=== PATIENT | female | born 1985 | race Hispanic/Latino ===

== ENCOUNTER → 2024-06-21 08:20 | Outpatient (REF) | payer OTHER, SELFPAY ==
[2024-06-21 09:32] LABS: % Basophils 0.7 % (0-2); % Eosinophils 1.7 % (0-6); % Immature Granulocytes 0.4 % (0-0.5); % Lymphocytes 23.8 % (20.5-51.1); % Monocytes 6.3 % (1.7-9.3); % Neutrophils 67.1 % (42.2-75.2); Absolute Basophils 0.1 10^3/uL (0-0.2); Absolute Eosinophils 0.1 10^3/uL (0-0.7); Absolute Lymphocytes 1.7 10^3/uL (1.2-3.4); Absolute Monocytes 0.5 10^3/uL (0.1-0.6); Absolute Neutrophils 4.9 10^3/uL (1.4-6.5); Hematocrit 36.1 % (37.0-47.0); Mean Corp Hgb Conc. 33.2 g/dL (33.0-37.0); Mean Corpuscular Hgb 29.6 pg (27.0-31.0); Mean Corpuscular Volume 89.1 fL (81.0-99.0); Mean Platelet Volume 11.1 fL (7.4-10.4); Nucleated Red Blood Cells % 0 %; Platelet Count 185 10^3/uL (130-400); Red Blood Cell Count 4.05 10^6/uL (4.20-5.40); Red Cell Dist. Width 12.4 % (11.5-14.5); White Blood Cell Count 7.3 10^3/uL (4.8-10.8)
[2024-06-21 10:02] LABS: ALT (SGPT) 15 U/L (0-35); AST (SGOT) 20 U/L (14-36); Alkaline Phosphatase 60 U/L (38-126); Blood Urea Nitrogen 11 mg/dl (7-17); Calcium 9.2 mg/dl (8.4-10.2); Carbon Dioxide 27 mmol/L (22-30); Chloride 104 mmol/L (98-107); Glucose 85 mg/dl (70-99); HDL Cholesterol 53 mg/dl; LDL Cholesterol, Calculated 56 mg/dl; Potassium 4.4 mmol/L (3.5-5.1); Sodium 137 mmol/L (135-145); Total Bilirubin 0.6 mg/dl (0.2-1.3); Total Cholesterol 122 mg/dl (50-199); Total Protein 6.7 g/dl (6.3-8.2); Triglyceride 69 mg/dl (10-149); Very Low Density Lipoprotein 13 mg/dl (0-30); eGFR > 60.00
[2024-06-21 10:25] LABS: Glycohemoglobin (HgbA1c) 4.9 % (4.0-5.6)
[2024-06-21 10:34] LABS: TSH Reflex To Free T4 1.78 uIU/ml (0.47-4.68)
[2024-06-21 10:50] LABS: Hepatitis C Antibody Negative (Negative)
== END ==
LOC: RAD 08:20
PROVIDERS: ATTENDING PHYSICIAN Nurse Practitioner Family
DX: Z00.00 Encounter for general adult medical examination without abnormal findings (principal); Z11.59 Encounter for screening for other viral diseases; M25.551 Pain in right hip; M54.41 Lumbago with sciatica, right side
CPT/HCPCS: 36415; 72110; 72220; 73502; 80053; 80061; 83036; 84443; 85025; 86803

== ENCOUNTER → 2024-07-26 13:54 | Outpatient (REF) | payer OTHER, SELFPAY ==
[2024-07-26 17:14] LABS: Urine Albumin 1+ (Neg - Trace); Urine Bilirubin Negative (Negative); Urine Character Cloudy (Clear); Urine Color Yellow; Urine Glucose Negative (Negative); Urine Ketone Negative (Negative); Urine Leukocyte Negative (Negative); Urine Nitrite Negative (Negative); Urine Occult Blood 1+ (Negative); Urine Specific Gravity 1.025 (<1.030); Urine Urobilinogen Negative (Neg - 1+)
[2024-07-26 18:00] LABS: Urine Amorphous Seen; Urine Bacteria Many (Negative); Urine White Cell 0-2 /HPF (0-5)
== END ==
LOC: CLAB 13:54
PROVIDERS: ATTENDING PHYSICIAN Nurse Practitioner Family
DX: K59.00 Constipation, unspecified (principal); Z01.89 Encounter for other specified special examinations
CPT/HCPCS: 81003; 81015; 87086

== ENCOUNTER → 2024-12-27 15:46 | Outpatient (REF) | payer OTHER, SELFPAY ==
[2024-12-27 17:14] LABS: Hematocrit 35.2 % (37.0-47.0); Hemoglobin 11.6 g/dL (12.0-16.0); Mean Corp Hgb Conc. 33.0 g/dL (33.0-37.0); Mean Corpuscular Volume 88.2 fL (81.0-99.0); Nucleated Red Blood Cells % 0 %; Platelet Count 234 10^3/uL (130-400); Red Cell Dist. Width 12.9 % (11.5-14.5)
[2024-12-27 17:16] LABS: Urine Character Clear (Clear)
[2024-12-27 17:51] LABS: C-Reactive Protein 8.80 mg/L (0.0-10.00)
[2024-12-27 17:52] LABS: Iron 109 ug/dl (37-170)
[2024-12-27 18:01] LABS: Total Iron Binding Capacity 333 ug/dl (265-497)
[2024-12-27 21:48] LABS: Ferritin 22.8 ng/ml (6.24-137)
[2024-12-30 02:06] LABS: ANA, IgG Reflex to HEp-2 None Detected (None Detected)
[2024-12-30 15:22] LABS: Lyme Antibody Screen, EIA Negative (Negative); Rheumatoid Agglutinin Less Than 10 IU (<10 IU)
== END ==
LOC: REG 15:46
PROVIDERS: ATTENDING PHYSICIAN Nurse Practitioner Family
DX: D64.9 Anemia, unspecified (principal); M25.50 Pain in unspecified joint
CPT/HCPCS: 36415; 81003; 81015; 82728; 83540; 83550; 85025; 85652; 86038; 86140; 86430; 86618; 87086